=== PATIENT | female | born 1985 | race African-American/Black ===

== ENCOUNTER 2019-01-30 18:14 | Emergency (ER) | payer OTHER ==
[~2019-01-30] VITALS: Ht 149.9 cm; Wt 63.5 kg
[2019-01-30 18:15] VITALS: BP 131/98
== END 2019-01-30 19:07 | disposition home or self-care (01) ==
LOC: ER 18:14
DX: Z04.1 Encounter for examination and observation following transport accident (principal); V89.2XXA Person injured in unspecified motor-vehicle accident, traffic, initial encounter; Y92.89 Other specified places as the place of occurrence of the external cause; Y93.89 Activity, other specified; Y99.8 Other external cause status